=== PATIENT | male | born 1985 | race Hispanic/Latino ===

== ENCOUNTER 2017-09-02 01:53 | Emergency (ER) | payer SELFPAY ==
[2017-09-02 02:22] VITALS: BP 152/90; PULSE 88; RESP 17; TEMP 98.1; O2SAT 100
--- NOTE | 2017-09-02 03:32 | ED PDOC ---
HPI: Psych/Substance Abuse Time Seen by Provider: 09/02/17 02:05 Chief Complaint (Nursing): Alcohol Ingestion Chief Complaint (Provider): Alcohol Ingestion ED Caveat: Intoxicated History Per: Patient History/Exam Limitations: no limitations Onset/Duration Of Symptoms: Mins (prior to arrival) Current Symptoms Are (Timing): Still Present Additional Complaint(s): 32 year old male with no known medical history was brought to the ED by [facility] police for public intoxication. He was found asleep in public. Reports he is visiting from [place]. History is limited due to intoxication. PMD: none provided Past Medical History Reviewed: Historical Data, Nursing Documentation, Vital Signs, Unable To Obtain Vital Signs: Last Vital Signs Temp 98.1 F 09/02/17 02:15 Pulse 88 09/02/17 02:15 Resp 17 09/02/17 02:15 BP 152/90 H 09/02/17 02:15 Pulse Ox 100 09/02/17 02:15 - Family History Family History: States: Unknown Family Hx - Allergies Allergies/Adverse Reactions: Allergies Allergy/AdvReac Type Severity Reaction Status Date / Time No Known Allergies Allergy Verified 09/02/17 02:29 Review of Systems ROS Statement: Except As Marked, All Systems Reviewed And Found Negative Physical Exam - Reviewed Nursing Documentation Reviewed: Yes Vital Signs Reviewed: Yes - Physical Exam Appears: Positive for: Non-toxic, No Acute Distress Head Exam: Positive for: ATRAUMATIC, NORMOCEPHALIC Skin: Positive for: Normal Color, Warm, Dry Eye Exam: Positive for: EOMI, Normal appearance, PERRL Neck: Positive for: Normal, Painless ROM, Supple Cardiovascular/Chest: Positive for: Regular Rate, Rhythm. Negative for: Murmur Respiratory: Positive for: Normal Breath Sounds. Negative for: Respiratory Distress Gastrointestinal/Abdominal: Positive for: Normal Exam, Soft Back: Positive for: Normal Inspection Extremity: Positive for: Normal ROM. Negative for: Deformity Neurologic/Psych: Positive for: Alert, Oriented (x 2 (person and time)), Other ( slurred speech) - ECG O2 Sat by Pulse Oximetry: 100 (RA) Pulse Ox Interpretation: Normal Medical Decision Making Medical Decision Making: Time: 02:29 Impression: Alcohol intoxication Initial Plan: --Accucheck --Alcohol serum Patient is awake, alert, oriented x 3. Has a steady gait. Will be discharged home. Return if symptoms persist or worsen. Scribe Attestation: Documented by Caitlin Porter, acting as a scribe for Ang Sharp MD. Provider Scribe Attestation: All medical record entries made by the Scribe were at my direction and personally dictated by me. I have reviewed the chart and agree that the record accurately reflects my personal performance of the history, physical exam, medical decision making, and the department course for this patient. I have also personally directed, reviewed, and agree with the discharge instructions and disposition. Disposition - Clinical Impression Clinical Impression: Alcohol abuse with intoxication - Patient ED Disposition Is Patient to be Admitted: No - Disposition Disposition: Routine/Home Disposition Time: 05:30 Condition: STABLE Instructions: Alcohol Intoxication (ED) Forms: [employer] (Malagasy)
== END 2017-09-02 04:53 | disposition home or self-care (01) ==
LOC: H.ER 01:53
DX: F10.129 Alcohol abuse with intoxication, unspecified (principal)
CPT/HCPCS: 82948; 99282; G0480